=== PATIENT | female | born 1990 | race Caucasian/White ===

== ENCOUNTER 2024-05-30 12:23 | Emergency (ER) | payer MEDICAID ==
[2024-05-30] MEDS: methylPREDNISolone Sodium Succinate 125 MG/2 ML SDV IM ONE (12:57)
[2024-05-30] MEDS: diphenhydrAMINE 50 MG/ML SDV IM ONE (13:00)
== END 2024-05-30 13:56 | disposition home or self-care (01) ==
LOC: FB.ED 12:23
DX: T78.3XXA Angioneurotic edema, initial encounter (principal); Z91.048 Other nonmedicinal substance allergy status; Z79.899 Other long term (current) drug therapy
CPT/HCPCS: 96372; 99283; J1200; J2919